=== PATIENT | male | born 1985 ===

== ENCOUNTER 2017-12-22 09:03 | Emergency (ER) | payer BC ==
[2017-12-22 09:25] VITALS: BP 116/70; PULSE 124; RESP 22; TEMP 102.9; O2SAT 100
[2017-12-22] MEDS ORDERED: guaiFENesin 100 mg/5 ml Syrup UD PO STA (09:39)
--- NOTE | 2017-12-22 09:41 | C.PDOC ---
History Of Present Illness 32 y/o male presents to the ER complaining of congestion, dry cough, and body aches which have been present since yesterday. Patient denies having nausea, vomiting, and diarrhea.Patient would like a work note. Time Seen by Provider: 12/22/17 09:35 Chief Complaint (Nursing): Flu-like Symptoms History Per: Patient History/Exam Limitations: no limitations Onset/Duration Of Symptoms: Days Current Symptoms Are (Timing): Still Present Associated Symptoms: Cough, Nasal Congestion Severity: Moderate Past Medical History Reviewed: Historical Data, Nursing Documentation, Vital Signs Vital Signs: Last Vital Signs Temp 102.9 F H 12/22/17 09:20 Pulse 124 H 12/22/17 09:20 Resp 22 12/22/17 09:20 BP 116/70 12/22/17 09:20 Pulse Ox 100 12/22/17 10:40 - Medical History PMH: Asthma Surgical History: No Surg Hx Family History: States: No Known Family Hx - Social History Hx Alcohol Use: No Hx Substance Use: No - Immunization History Hx Tetanus Toxoid Vaccination: No Hx Influenza Vaccination: No Hx Pneumococcal Vaccination: No Review Of Systems Constitutional: Positive for: Malaise ENT: Positive for: Nose Congestion Respiratory: Positive for: Cough (dry cough) Gastrointestinal: Negative for: Nausea, Vomiting, Diarrhea Physical Exam - Physical Exam Appears: Non-toxic, No Acute Distress Skin: Normal Color, Warm Head: Atraumatic, Normacephalic Eye(s): bilateral: Normal Inspection, PERRL Ear(s): Bilateral: Normal Nose: Normal Oral Mucosa: Moist Throat: Normal, No Erythema, No Exudate Neck: Supple Chest: Symmetrical Cardiovascular: Rhythm Regular Respiratory: Normal Breath Sounds, No Accessory Muscle Use, No Rales, No Rhonchi , No Wheezing Extremity: Normal ROM Neurological/Psych: Oriented x3, Normal Speech, Normal Cognition, Normal Motor, Normal Sensation ED Course And Treatment O2 Sat by Pulse Oximetry: 100 (RA) Pulse Ox Interpretation: Normal Progress Note: Patient given Tylenol,Tamiflu, and Robitussin. Medical Decision Making Medical Decision Making: viral syndrome c/w influenza- epidemic now- treat empirically. Disposition Doctor Will See Patient In The: Office Counseled Patient/Family Regarding: Studies Performed, Diagnosis - Disposition Referrals: [facility] [Outside] Disposition: HOME/ ROUTINE Disposition Time: 09:41 Condition: GOOD Additional Instructions: tamiflu 75 mg dos veces al jennifer por 5 espana. Daquil/Nyquil cada 4 horas kelly necessario NO trabajo hasta que no tiene fiebre por 24 horas. Prescriptions: Oseltamivir [Tamiflu] 75 mg PO BID #9 cap Instructions: Influenza (ED) Forms: [facility] (Grenadian), Work Excuse Print Language: MONGOLIAN - Clinical Impression Clinical Impression: Influenza - Scribe Statement The provider has reviewed the documentation as recorded by the Demetrius Fajardo Provider Attestation: All medical record entries made by the Raudelibgraciela were at my direction and personally dictated by me. I have reviewed the chart and agree that the record accurately reflects my personal performance of the history, physical exam, medical decision making, and the department course for this patient. I have also personally directed, reviewed, and agree with the discharge instructions and disposition.
[2017-12-22] MEDS ORDERED: guaiFENesin 100 mg/5 ml Syrup UD ONE (09:47)
== END 2017-12-22 10:02 | disposition home or self-care (01) ==
LOC: C.ER 09:03
DX: J11.1 Influenza due to unidentified influenza virus with other respiratory manifestations (principal)